=== PATIENT | female | born 1935 | race Caucasian/White ===

== ENCOUNTER 2024-08-08 22:33 | Inpatient (IN) | payer OTHER, SELFPAY ==
[2024-08-08 15:35] VITALS: BP 159/81
[2024-08-08 16:17] LABS: % Basophils 0.1 % (0-2); % Eosinophils 0.3 % (0-6); % Immature Granulocytes 0.4 % (0-0.5); % Lymphocytes 24.4 % (20.5-51.1); % Monocytes 9.2 % (1.7-9.3); % Neutrophils 65.6 % (42.2-75.2); Absolute Lymphocytes 1.7 10^3/uL (1.2-3.4); Absolute Monocytes 0.6 10^3/uL (0.1-0.6); Absolute Neutrophils 4.6 10^3/uL (1.4-6.5); Hematocrit 38.1 % (37.0-47.0); Hemoglobin 13.3 g/dL (12.0-16.0); Mean Corp Hgb Conc. 34.9 g/dL (33.0-37.0); Mean Corpuscular Hgb 29.5 pg (27.0-31.0); Mean Corpuscular Volume 84.5 fL (81.0-99.0); Mean Platelet Volume 10.3 fL (7.4-10.4); Nucleated Red Blood Cells % 0 %; Platelet Count 245 10^3/uL (130-400); Red Blood Cell Count 4.51 10^6/uL (4.20-5.40); Red Cell Dist. Width 12.6 % (11.5-14.5)
[2024-08-08 16:29] LABS: ALT (SGPT) 23 U/L (0-35); AST (SGOT) 30 U/L (14-36); Albumin 4.3 g/dl (3.5-5.0); Alkaline Phosphatase 79 U/L (38-126); Blood Urea Nitrogen 20 mg/dl (7-17); Calcium 9.2 mg/dl (8.4-10.2); Carbon Dioxide 30 mmol/L (22-30); Chloride 93 mmol/L (98-107); Glucose 112 mg/dl (70-99); Potassium 3.2 mmol/L (3.5-5.1); Sodium 134 mmol/L (135-145); Total Bilirubin 0.4 mg/dl (0.2-1.3); Total Protein 6.9 g/dl (6.3-8.2); eGFR > 60.00
[2024-08-08 17:58] VITALS: BP 157/74
[2024-08-08 18:00] VITALS: BP 160/88; BMI 25.1
--- NOTE | 2024-08-08 18:15 | ED.GENMED ---
History of Present Illness
<Gladis Lou LAMINATION INSPECTOR - Last Filed: 08/08/24 23:54>
General
Chief Complaint: Breathing Problem
Source: patient
Exam Limitations: none
Time Seen by Provider: 08/08/24 17:45
Nursing documentation reviewed up to this point in time: agreed with
History of Present Illness
History of Present Illness:
89 yo female from home for increasing SOB over rosa past 8 days. Diagnosed with flu 8 days ago. Had cough that has subsided. States today she couldn't catch her breath, BAH. Denies fever. Denies CP. States she has had some wheezing.
Hx HTN, HLD, Hypothyroid, depression/anxiety, CKD 3,
Echo 11/2022:EF 55-60%, mild mitral regurgitation, mild tricuspid regurgitation, otherwise unremarkable
Past History
<Gladis Lou, LAMINATION INSPECTOR - Last Filed: 08/08/24 23:54>
Past History
ED Past Medical History: HTN, Hypercholesterolemia, Hypothyroidism and Other (Lyme's disease, kidney stones)
ED Past Surgical History: Urological (chronic pain in vaginal area/groin)
Social History
Tobacco: Non-smoker
Alcohol: None
Drug: None
Personal:
Living: with family
Employment: Retired
Family History
Family History: Hypertension
Review of Systems
<Gladis Lou, LAMINATION INSPECTOR - Last Filed: 08/08/24 23:54>
Review of Systems
Allergies reviewed?: Yes
All Other Systems: ROS reviewed and negative except as documented in HPI and ROS
Constitutional: Reports fatigue; Denies fever
EENT: Denies sore throat
Respiratory: Reports trouble breathing; Denies cough
Cardiac: Denies chest pain or syncope
ABD/GI: Denies abdominal pain, nausea, vomiting or diarrhea
: Denies dysuria, frequency or difficulty voiding
Musculoskeletal: Reports no symptoms
Skin: Reports no symptoms
Neurological: Reports no symptoms
Phy Exam
<Gladis Lou, LAMINATION INSPECTOR - Last Filed: 08/08/24 23:54>
Physical Exam
Physical Exam:
GENERAL: No acute distress. A&Ox3.
CONSTITUTIONAL: Afebrile.
EYES: clear, conjunctivae normal
ENMT: moist mucus membranes, Pharynx nl
RESPIRATORY: Regular respirations, nonlabored, lungs clear.
CARDIOVASCULAR: Regular rate and rhythm, no murmurs, no rubs, mild crackles R lung base. Pulse ox 94% on 3L [place]
GI: Soft, nontender, normal BS
MUSCULOSKELETAL: Moves with ease. Well perfused. No edema
SKIN: Warm, dry, pink
PSYCH: Normal mood and affect. Well kept, interactive and appropriate
NEUROLOGIC: Awake, alert and oriented. No focal neurological deficits
Scores
<Gladis Lou, LAMINATION INSPECTOR - Last Filed: 08/08/24 23:54>
Heart Failure Risk
Heart Failure Risk Score: Not Applicable
Course
<Gladis Lou, LAMINATION INSPECTOR - Last Filed: 08/08/24 23:54>
Orders/Labs/Results
Orders:
Orders
08/08/24 Dinner
Regular
08/08/24 15:38
CR Chest - 2 Views Urgent
Comment:
Reason For Exam: SOB
08/08/24 15:50
CMP [Comprehensive Metabolic Panel] Urgent
Complete Blood Count/With Diff Urgent
08/08/24 18:30
Electrocardiogram (*1) Urgent
Reason for Study: Shortness of Breath
EKG- Treatment ONCE
08/08/24 18:31
CT Chest PE Study Urgent
Comment:
Reason For Exam: SOB, BAH, hypoxemia
08/08/24 21:15
CefTRIAXone [Rocephin] 1,000 mg IV NOW STA
08/08/24 21:16
Doxycycline [Vibramycin] 100 mg PO NOW STA
08/08/24 22:15
Admit/Transfer Patient As Directed
Co-Sign Provider:
Level of Care: Inpatient admission
Assign to:: Medical/Surgical
Physician / Group: hospitalist
Diagnosis: Pneumonia
Reason for Hospitalization: hypoxic respiratory distress
Expected length of stay greater than two midnights?: Yes
ELOS- Estimated Length of Stay in days: 2
I certify the patient meets the requirements for IP care: Yes
08/08/24 22:16
Code Status As Directed
Resuscitation Status: Full Code
PRN Pain Medication Management As Directed
May give lesser potent ordered pain med per pt: Yes
preference::
Protocol:: Medication orders for pain may be administered in a
manner that supports deferring to patient preference
when the pt is:
- Requesting an ordered lesser potent pain medication.
Least to most potent pain medications are defined
as: acetaminophen < NSAID < tramadol < opioids
(morphine, oxycodone, hydromorphone).
- Requesting a lesser dose of the same medication IF
ORDERED.
- Requesting a less intrusive route of administration
if both routes are prescribed by the provider (PO <
IV).
08/08/24 22:23
Potassium Chloride [KCl] 40 meq PO NOW STA
08/08/24 22:40
COVID-19 Antigen Stat
Source: Nasal Swab
08/08/24 23:00
Flush (0.9% Sodium Chloride) [Flush (Nss)] See Dose Instructions IV PER PROTOCOL
08/08/24 23:54
Legionella Urinary Antigen Routine
VITALY Source: Urine
Specimen Description:
Acetaminophen [Tylenol] 650 mg PO Q4HPRN PRN
Guaifenesin/Dextromethorphan [Robitussin Dm] 5 ml PO Q4HPRN PRN
Ipratropium/Albuterol Sulfate [Duoneb] 3 ml INH R Q4HPRN PRN
Ondansetron Injectable [Zofran] 4 mg IV Q6HPRN PRN
Tramadol HCl [Ultram] 50 mg PO Q6HPRN PRN
Activity As Directed
Activity Level: Out of Bed-Early Mobility
Intake/ Output As Directed
Frequency: Per unit guidelines
Vital Signs As Directed
Frequency: Per unit guidelines
Weight As Directed
Frequency: Once
Comment: on admission
O2 Therapy [RESP] Routine
Nasal Cannula Liter Flow: 6 LPM
Titrate/Wean O2 to maintain O2 sat greater than (%): 93
Special Instructions: Please apply Humidified MID-FLOW to 15 L as needed. Wean as tolerated
Pulse Ox/cont/shift [RESP] Routine
Quantity: 1
Special Instructions: notify provider if SPO2 < 91%
Rx Incentive Spirometry [RESP] Routine
Frequency: q1h while awake
Pt Eval And Treat Routine
Activity Level: With Assistance
DX Deep Vein Thrombosis Video Routine
08/09/24 06:00
Basic Metabolic Panel IN AM
Complete Blood Count/No Diff IN AM
Levothyroxine [Synthroid] 25 mcg PO DAILY @ 0600
08/09/24 08:00
Amlodipine [Norvasc] 5 mg PO DAILY
Doxycycline [Vibramycin] 100 mg PO BID
Escitalopram Oxalate [Lexapro] 10 mg PO DAILY
Lisinopril [Zestril] 20 mg PO DAILY
Pregabalin [Lyrica] 50 mg PO BID
08/09/24 18:00
Atorvastatin [Lipitor] 10 mg PO QPM
Enoxaparin Sodium [Lovenox] 40 mg SC QPM
08/09/24 22:00
CefTRIAXone [Rocephin] 1,000 mg IV Q24H
Abnormal Lab Results
08/08/24
15:50
Sodium 134 L mmol/L
(135-145)
Potassium 3.2 L mmol/L
(3.5-5.1)
Chloride 93 L mmol/L
(98-107)
BUN 20 H mg/dl
(7-17)
Glucose 112 H mg/dl
(70-99)
08/08/24 15:50
08/08/24 15:50
Vital Signs
Initial and Last Documented VS:
Initial Vital Signs
Temp Pulse Resp BP Pulse Ox
97.4 F 83 20 159/81 90
08/08/24 15:35 08/08/24 15:35 08/08/24 15:35 08/08/24 15:35 08/08/24 15:35
Last Documented Vital Signs
Temp Pulse Resp BP Pulse Ox
97.4 F 73 36 156/74 88
08/08/24 15:35 08/08/24 19:57 08/08/24 19:57 08/08/24 19:57 08/08/24 20:01
Iron Handler consulted with Physician
Iron Handler consulted with physician?: Yes
Name of Physician Consulted: Azeem
Scottylt;Osmel Gann, DO - Last Filed: 08/08/24 19:54>
Orders/Labs/Results
Orders:
Orders
08/08/24 Dinner
Regular
08/08/24 15:38
CR Chest - 2 Views Urgent
Comment:
Reason For Exam: SOB
08/08/24 15:50
CMP [Comprehensive Metabolic Panel] Urgent
Complete Blood Count/With Diff Urgent
08/08/24 18:30
Electrocardiogram (*1) Urgent
Reason for Study: Shortness of Breath
EKG- Treatment ONCE
08/08/24 18:31
CT Chest PE Study Urgent
Comment:
Reason For Exam: SOB, BAH, hypoxemia
08/08/24 21:15
CefTRIAXone [Rocephin] 1,000 mg IV NOW STA
08/08/24 21:16
Doxycycline [Vibramycin] 100 mg PO NOW STA
08/08/24 22:15
Admit/Transfer Patient As Directed
Co-Sign Provider:
Level of Care: Inpatient admission
Assign to:: Medical/Surgical
Physician / Group: hospitalist
Diagnosis: Pneumonia
Reason for Hospitalization: hypoxic respiratory distress
Expected length of stay greater than two midnights?: Yes
ELOS- Estimated Length of Stay in days: 2
I certify the patient meets the requirements for IP care: Yes
08/08/24 22:16
Code Status As Directed
Resuscitation Status: Full Code
PRN Pain Medication Management As Directed
May give lesser potent ordered pain med per pt: Yes
preference::
Protocol:: Medication orders for pain may be administered in a
manner that supports deferring to patient preference
when the pt is:
- Requesting an ordered lesser potent pain medication.
Least to most potent pain medications are defined
as: acetaminophen < NSAID < tramadol < opioids
(morphine, oxycodone, hydromorphone).
- Requesting a lesser dose of the same medication IF
ORDERED.
- Requesting a less intrusive route of administration
if both routes are prescribed by the provider (PO <
IV).
08/08/24 22:23
Potassium Chloride [KCl] 40 meq PO NOW STA
08/08/24 22:40
COVID-19 Antigen Stat
Source: Nasal Swab
08/08/24 23:00
Flush (0.9% Sodium Chloride) [Flush (Nss)] See Dose Instructions IV PER PROTOCOL
08/08/24 23:54
Legionella Urinary Antigen Routine
VITALY Source: Urine
Specimen Description:
Acetaminophen [Tylenol] 650 mg PO Q4HPRN PRN
Guaifenesin/Dextromethorphan [Robitussin Dm] 5 ml PO Q4HPRN PRN
Ipratropium/Albuterol Sulfate [Duoneb] 3 ml INH R Q4HPRN PRN
Ondansetron Injectable [Zofran] 4 mg IV Q6HPRN PRN
Tramadol HCl [Ultram] 50 mg PO Q6HPRN PRN
Activity As Directed
Activity Level: Out of Bed-Early Mobility
Intake/ Output As Directed
Frequency: Per unit guidelines
Vital Signs As Directed
Frequency: Per unit guidelines
Weight As Directed
Frequency: Once
Comment: on admission
O2 Therapy [RESP] Routine
Nasal Cannula Liter Flow: 6 LPM
Titrate/Wean O2 to maintain O2 sat greater than (%): 93
Special Instructions: Please apply Humidified MID-FLOW to 15 L as needed. Wean as tolerated
Pulse Ox/cont/shift [RESP] Routine
Quantity: 1
Special Instructions: notify provider if SPO2 < 91%
Rx Incentive Spirometry [RESP] Routine
Frequency: q1h while awake
Pt Eval And Treat Routine
Activity Level: With Assistance
DX Deep Vein Thrombosis Video Routine
08/09/24 06:00
Basic Metabolic Panel IN AM
Complete Blood Count/No Diff IN AM
Levothyroxine [Synthroid] 25 mcg PO DAILY @ 0600
08/09/24 08:00
Amlodipine [Norvasc] 5 mg PO DAILY
Doxycycline [Vibramycin] 100 mg PO BID
Escitalopram Oxalate [Lexapro] 10 mg PO DAILY
Lisinopril [Zestril] 20 mg PO DAILY
Pregabalin [Lyrica] 50 mg PO BID
08/09/24 18:00
Atorvastatin [Lipitor] 10 mg PO QPM
Enoxaparin Sodium [Lovenox] 40 mg SC QPM
08/09/24 22:00
CefTRIAXone [Rocephin] 1,000 mg IV Q24H
Abnormal Lab Results
08/08/24
15:50
Sodium 134 L mmol/L
(135-145)
Potassium 3.2 L mmol/L
(3.5-5.1)
Chloride 93 L mmol/L
(98-107)
BUN 20 H mg/dl
(7-17)
Glucose 112 H mg/dl
(70-99)
08/08/24 15:50
08/08/24 15:50
Vital Signs
Initial and Last Documented VS:
Initial Vital Signs
Temp Pulse Resp BP Pulse Ox
97.4 F 83 20 159/81 90
08/08/24 15:35 08/08/24 15:35 08/08/24 15:35 08/08/24 15:35 08/08/24 15:35
Last Documented Vital Signs
Temp Pulse Resp BP Pulse Ox
97.4 F 73 36 156/74 88
08/08/24 15:35 08/08/24 19:57 08/08/24 19:57 08/08/24 19:57 08/08/24 20:01
<Gladis Lou, LAMINATION INSPECTOR - Last Filed: 08/08/24 23:54>
MDM/Problems Addressed
Differential Diagnosis Includes:
Covid, PNA, PE
MDM/Problems Addressed:
89 yo female from home for increasing SOB over rosa past 8 days. Diagnosed with flu 8 days ago, neg Covid at that time. Had cough that has subsided. States today she couldn't catch her breath, BAH. Denies fever. Denies CP. States she has had some
wheezing.
Pulse ox 94% on 3L NC.
EKG NSR
CBC, CMP with no clinically significant abnormality
CXR NAD
Hx HTN, HLD, Hypothyroid, depression/anxiety, CKD 3,
Echo 11/2022:EF 55-60%, mild mitral regurgitation, mild tricuspid regurgitation, otherwise unremarkable
No history of cardiac/CHF, no sign of fluid overload, chest x-ray NAD, no indication for a BNP
Plan: Take patient off oxygen and see if she desaturates, if she remains stable we will do a road test, if she desaturates we will move on to a chest CT.
6:30 p.m.
Off O2 pt pulse ox dropped to 88% within minutes, Placed back on 3L O2 NC. Will check Chest CT/Pe study.
7:50 p.m.
RN reports pt O2 Sat dropped to 80's O2 increased to 6 L NC w O2 sat now 92%
Pt in no distress, calm, not tachycardic, no labored breathing, lungs remain clear with fine RLL crackles.
Pt awaiting PE study.
Dr. Gann in to evaluate
8:45 p.m.
PE study: Bilateral lower lobe PNA
Hospitalist notified of admissio
Pt remains stable.
<Gladis Lou LAMINATION INSPECTOR - Last Filed: 08/08/24 23:54>
*Critical Care Note
Total Time (30-74mins, 75-104mins- exclusive of procedures): Not Applicable
ED Attending Note
<Gladis Lou LAMINATION INSPECTOR - Last Filed: 08/08/24 23:54>
-
Portions of this chart may have been created with voice recognition software.� Occasional wrong word or��sound alike� substitutions may have occurred due to the inherent limitations of voice recognition software.
<Osmel Gann DO - Last Filed: 08/08/24 19:54>
ED Attending Note
Patient seen and examined by attending physician: Yes
I performed the substantive portion of visit, reviewed & personally made and approve the management plan that is documented in note by myself or SYL.: Yes
ED Attending Note:
I agree with Lisa's note.
Patient presents because she is feel short of breath. Patient was tested for flu last week was positive. No known fever. She does not use any inhalers or nebulizers. She has some discomfort with a deep breath but 'not bad'.
Patient noted to be hypoxic on room air with a sat down to the mid 80s. Otherwise her vital signs are acceptable
General: Awake, Alert, Oriented X3. Patient does not appear to be in significant respiratory distress
Vitals: Hypoxic
Head: Atraumatic
Eyes: Pupils equal, EOMI
Throat: Airway intact, no exudates
Neck: Trachea midline
Lungs: Decreased breath sounds, no wheezing noted
Heart: Regular rate, no murmurs
Abd: Soft, Nontender, No pulsatile mass
Skin: Warm, dry, no rash
Extremities: pulses equal b/l, no edema
On review of the patient's chest x-ray I do not see an obvious infiltrate, heart failure or other reason for her to be hypoxic. Her CBC is essentially normal. Chemistry show mild hypokalemia. Given her level of hypoxia without an apparent cause
we will obtain a CT of the chest with IV contrast to exclude PE or other pulmonary process
Discharge Plan
Departure
Patient Disposition: Admit
Date of Disposition: 08/08/24
Time of Disposition: 21:08
Admit to: Med/Surg
Presentation/result/management discussed w/ accepting MD/DO: Hospitalist
Condition: Fair
Covid-19: Negative COVID-19
Discharge Problem:
Bilateral pneumonia
Interventions
Interventions:
*Risk Screen - Suicide Last Done: 08/08/24 15:35
*General Assessment Last Done: 08/08/24 15:35
*Neglect/Abuse Screening Last Done: 08/08/24 18:00
ED- Fall Risk Assessment Last Done: 08/08/24 20:01
*ED COVID-19 Vaccine History Last Done: 08/08/24 15:35
ED- Cardiac Assessment Last Done: 08/08/24 20:01
ED- Pulmonary Assessment Last Done: 08/08/24 20:01
[2024-08-08 19:57] VITALS: BP 156/74
[2024-08-08] MEDS: ROCEPHIN 1000 MG IV (22:02)
[2024-08-08] MEDS: VIBRAMYCIN 100 MG PO (22:02)
--- NOTE | 2024-08-08 22:08 | HPS.HSE ---
Family Physician
-
Family Physician: Chris Malagon
Chief Complaint
-
Worsening shortness of breath
History of Present Illness
This is a 89-year-old female was past medical history significant for hypertension, irritable bowel syndrome, depression, hypothyroid presenting to the emergency department for increasing shortness of breath.
Patient reports that she was diagnosed with influenza via her nasal swab at a community [facility] facility 8 days ago. At the time she was having fevers and productive cough and some mild shortness of breath. She reported that the fevers have
subsided. She also reports that her productive cough is subsided. However in the last few days she is getting worse and worse with her shortness of breath. She now has significant dyspnea on exertion with any activity. She reports very mild
inspirational chest discomfort. She denies feeling dizzy or lightheaded. She denies having any chest pain otherwise. Patient denies any lower extremity swelling, palpitations, orthopnea or PND. She has no smoking history, denies any history of
interstitial lung disease, denies any history of asthma.
On arrival in the emergency department she was hypoxic requiring supplemental oxygen. I found her satting around 89% on 5 L nasal cannula. She was tachypneic rate of 36. Blood pressure was 156/74 with a pulse of 73. Chest x-ray initially was
unremarkable. A CT chest with IV contrast is pending official read. By my read she has bilateral lower lobe opacities. CBC was unremarkable. Chemistries notable for a potassium of 3.2 but is otherwise unremarkable.
Medical History
Past Medical History
Past Medical History: Reports HTN, Hypothyroidism and Other (Irritable bowel syndrome)
Additional Past Medical History:
Colonic polyps
Past Surgical History: Reports None
Social History
Tobacco: Non-smoker (Never smoked)
Alcohol: None
Drug: None
Personal:
Living: With Family
Employment: Retired
Family History
Family History: Not pertinent
Allergies / Home Medications
Allergies reflects when Allergies were last updated in [facility].
Home Medications with original date entered in [facility]
Allergy/Medication List:
Allergies
Allergy/AdvReac Type Severity Reaction Status Date / Time
ciprofloxacin [From Cipro] Allergy Unknown Verified 08/08/24 15:37
Home Medications
lisinopril 20 mg-hydrochlorothiazide 12.5 mg tablet 2 ea PO Daily 12/01/15
tramadol 50 mg tablet 1 tab PO DAILY 12/01/15
atorvastatin 10 mg tablet 10 mg PO DAILY 04/13/17
gabapentin 100 mg capsule 100 mg PO BID #30 caps 04/04/22
prednisone 20 mg tablet 40 mg (2 x 20 mg) PO DAILY #10 tabs 04/04/22
lorazepam 0.5 mg tablet (Ativan) 0.5 mg PO DAILY PRN anxiety #10 tabs 11/18/22
Review of Systems
-
History Source: Patient
Constitutional: Reports No Symptoms
EENT: Reports No Symptoms
Respiratory: Reports Cough and Trouble Breathing
Cardiac: Reports No Symptoms
Abdomen/GI: Reports No Symptoms
: Reports No Symptoms
Musculoskeletal: Reports No Symptoms
Skin: Reports No Symptoms
Neurological: Reports No Symptoms
Endocrine: Reports No Symptoms
Hematologic/Lymphatic: Reports No Symptoms
Psych: Reports No Symptoms
Physical Exam
Vital Signs
Vital Signs
Temp Pulse Resp BP Pulse Ox
97.4 F 73 36 156/74 88
08/08/24 15:35 08/08/24 19:57 08/08/24 19:57 08/08/24 19:57 08/08/24 20:01
Physical Exam
General: Well Developed, Well Nourished and Comfortable
HEENT: NormoCephalic, Anicteric and Moist mucous membranes
Respiratory: Crackles
Cardiac: S1/S2 and Regular Rhythm
Breast: Deferred by me
GI: Soft, Non Tender and Non Distended
Rectal: Deferred by Provider
Genito-urinary: Deferred by me
Musculoskeletal: No Clubbing, No Cyanosis and No Edema
Skin: Warm
Neuro: AO x 3 and Nonfocal/grossly intact
Hematologic/Lymphatic: No Lymphadenopathy
Psych: Calm
Laboratory Results
-
08/08/24 15:50
08/08/24 15:50
Laboratory Results
Total Bilirubin 0.4 mg/dl (0.2-1.3) 08/08/24 15:50
AST 30 U/L (14-36) 08/08/24 15:50
ALT 23 U/L (0-35) 08/08/24 15:50
Alkaline Phosphatase 79 U/L (38-126) 08/08/24 15:50
Data Reviewed
-
Diagnostic Radiology: Image Personally Visualized and interpreted and Report Reviewed by me
CT Scan: Image Personally Visualized and interpreted and Report Reviewed by me
Lab Data: Labs Reviewed by me
Old Records: Reviewed
Impression/Plan
-
IMPRESSION:
89-year-old diagnosed with influenza in the setting of fevers cough and shortness of breath 8 days ago. She had improvement in her fever and cough but remains short of breath. She is quite hypoxic requiring 5 L to maintain a sat of 90%. No prior
history of pulmonary disease. I am currently awaiting the results of a CT PE study to rule out a PE. On the imaging so far she has multifocal opacities in the bilateral lower lobes. There is suspicion for superimposed pneumonia status post viral
infection.
PLAN:
1. Pneumonia -postviral pneumonia. No risk factors for resistant organisms. Severe hypoxia with elevated wob
- admit to med surg
- place on mid-flow oxygen
- check covid 19
- start ceftriaxone/doxycycline
- respiratory treatments with neb prn
- minimal cough and no wheezing, no evidence of asthmatic bronchitis
- supportive care
- pt evaluation
2. HTN
- continue lisinopril
- hold hctz
3. Hypokalemia - K 3.2 on hctz
- hold hctz
- check mag,
- k supplementation
DVT PPX - lovenox sq
Code status - full code
[2024-08-08] MEDS: ULTRAM 50 MG PO (22:44)
[2024-08-08] MEDS: KCL 40 MEQ PO (22:45)
[2024-08-08 23:03] LABS: COVID-19 Antigen Negative (Negative)
[2024-08-08 23:30] VITALS: BP 131/86
[2024-08-09 00:42] VITALS: BMI 22.8
[2024-08-09] MEDS: TYLENOL 650 MG PO ×2 (01:01→12:01)
[2024-08-09] MEDS: SYNTHROID 25 MCG PO (05:44)
--- NOTE | 2024-08-09 07:03 | W.PN.HOSP.TC ---
Today's Communication/Plan
-
cont abx
check sputum culture
Incentive Spirometer
VEST therapy
wean O2 supplementation as tolerated
Duoneb R QID and prn
Assessment / Plan
Assessment / Plan
Physical Exam
General: no acute distress, appears comfortable at this time
HEENT: NormoCephalic, Anicteric and Moist mucous membranes
Respiratory: Rhonchi
Cardiac: S1/S2 and Regular Rhythm
GI: Soft, Non Tender and Non Distended
Musculoskeletal: No Clubbing, No Cyanosis and No Edema
Skin: Warm
Neuro: AO x 3
Psych: Calm
89F diagnosed with influenza 8 days ago. She had improvement in her fever and cough but remained short of breath. Developed acute hypoxia requiring 5 L to maintain a sat of 90%. No prior history of pulmonary disease. Suspected superimposed
pneumonia status post viral infection.
PLAN:
CXR appreciated no acute abn's
CT chest appreciated
bronchitis/mild mucous plugging/likely atelectasis/possible pna
# Pneumonia -postviral pneumonia.
#Acute Hypoxic Respiratory Failure
#Severe hypoxia with elevated wob
- mid-flow oxygen wean O2 as tolerated
- covid 19 negative
- started on ceftriaxone/doxycycline, cont
- Duoneb R QID and prn
- check sputum culture
- VEST therapy
-Incentive spirometer
- PT eval appreciated SNF rehab
# HTN
- continue lisinopril
- hold hctz, Amlodipine added
-monitor and titrate antihypertensive regimen as necessary.
# Hypokalemia
monitor and replete as necessary
DVT PPX - lovenox sq
Code status - full code
Discussed with patient and patient's daughter Gladis
I spent a total of 50 minutes with the patient or on the floor. More than 50% of this time involved counseling and coordination of care.
Anticipated Discharge: 24 - 48 hours
Subjective/Interval History
-
Date of Service: August 09, 2024
Seen and examined at bedside in no acute distress sitting up comfortably chair. On nasal cannula supplementation, Reports some improvement in symptoms, though not resolved. Productive cough.
Objective Data
-
Labs:
Laboratory Results
08/09/24
06:00
WBC Pending
Hgb Pending
Hct Pending
Plt Count Pending
Sodium Pending
Potassium Pending
Chloride Pending
Carbon Dioxide Pending
BUN Pending
Creatinine Pending
Glucose Pending
Calcium Pending
Vital Signs:
Vital Signs
Temp Pulse Resp BP Pulse Ox
97.6 F 99 20 131/86 94
08/08/24 23:30 08/08/24 23:30 08/08/24 23:30 08/08/24 23:30 08/09/24 01:19
I&O
08/08/24 08/09/24 08/10/24
06:59 06:59 06:59
Intake Total 480 / 480
Balance 480 / 480
[2024-08-09] MEDS: ULTRAM 50 MG PO ×2 (07:42→17:05)
[2024-08-09] MEDS: NORVASC 5 MG PO (07:43)
[2024-08-09] MEDS: ZESTRIL 20 MG PO (07:43)
[2024-08-09] MEDS: LEXAPRO 10 MG PO (07:43)
[2024-08-09] MEDS: VIBRAMYCIN 100 MG PO ×2 (07:43→19:56)
[2024-08-09] MEDS: ROBITUSSIN DM 5 ML PO ×2 (07:49→12:01)
[2024-08-09 07:50] VITALS: BP 153/78
[2024-08-09] MEDS: LYRICA 50 MG PO ×2 (08:12→19:56)
[2024-08-09 08:19] LABS: Hematocrit 38.4 % (37.0-47.0); Hemoglobin 13.2 g/dL (12.0-16.0); Mean Corp Hgb Conc. 34.4 g/dL (33.0-37.0); Mean Corpuscular Hgb 28.9 pg (27.0-31.0); Mean Corpuscular Volume 84.2 fL (81.0-99.0); Mean Platelet Volume 10.4 fL (7.4-10.4); Platelet Count 266 10^3/uL (130-400); Red Blood Cell Count 4.56 10^6/uL (4.20-5.40); Red Cell Dist. Width 12.9 % (11.5-14.5); White Blood Cell Count 14.7 10^3/uL (4.8-10.8)
[2024-08-09 08:46] LABS: Blood Urea Nitrogen 17 mg/dl (7-17); Calcium 9.2 mg/dl (8.4-10.2); Carbon Dioxide 31 mmol/L (22-30); Chloride 94 mmol/L (98-107); Estimated Creatinine Clearance 37 ml/min; Glucose 137 mg/dl (70-99); Potassium 3.6 mmol/L (3.5-5.1); Sodium 135 mmol/L (135-145); eGFR > 60.00
[2024-08-09 10:34] VITALS: BP 131/59
--- NOTE | 2024-08-09 13:01 | CM ---
Patient seen bedside, initial assessment completed. Patient resides at [facility] with her spouse who has Dementia, first floor set up, no device used. Patient reports VN in the past, unsure with who, denies SNF history. Patient PCP
[facility], [facility], not [facility]. Patient currently on O2, does not wear home O2. CM discussed PT recommendations of SNF, patient declining SNF, reports she ambulates without device typically and does not need to go to rehab. CM will
continue to follow for all discharge planning needs.
Plan; return to [facility] with possible VN, declining SNF, watch for O2 needs.
[2024-08-09 15:40] VITALS: BP 154/71
[2024-08-09] MEDS: LOVENOX 40 MG SC (17:00)
[2024-08-09] MEDS: LIPITOR 10 MG PO (17:01)
[2024-08-09] MEDS: DUONEB 3 ML INH (20:03)
[2024-08-09] MEDS: STERILE WATER FOR INJECTION 10 ML IV (21:24)
[2024-08-09] MEDS: ROCEPHIN 1000 MG IV (21:24)
[2024-08-09 23:13] VITALS: BP 131/69
[2024-08-10] MEDS: SYNTHROID 25 MCG PO (05:11)
--- NOTE | 2024-08-10 06:22 | W.PN.HOSP.TC ---
Today's Communication/Plan
-
cont abx
Follow sputum culture
Incentive Spirometer
VEST therapy
wean O2 supplementation as tolerated
Duoneb R QID and prn
Assessment / Plan
Assessment / Plan
Physical Exam
General: no acute distress, appears comfortable at this time
HEENT: NormoCephalic, Anicteric and Moist mucous membranes
Respiratory: Rhonchi though appears improved from prior
Cardiac: S1/S2 and Regular Rhythm
GI: Soft, Non Tender and Non Distended
Musculoskeletal: No Clubbing, No Cyanosis and No Edema
Skin: Warm
Neuro: AO x 3
Psych: Calm
89F diagnosed with influenza 8 days ago. She had improvement in her fever and cough but remained short of breath. Developed acute hypoxia requiring 5 L to maintain a sat of 90%. No prior history of pulmonary disease. Suspected superimposed
pneumonia status post viral infection.
PLAN:
CXR appreciated no acute abn's
CT chest appreciated
bronchitis/mild mucous plugging/likely atelectasis/possible pna
# Pneumonia -postviral pneumonia.
#Acute Hypoxic Respiratory Failure
#Severe hypoxia with elevated wob
- mid-flow oxygen wean O2 as tolerated
- covid 19 negative
- started on ceftriaxone/doxycycline, cont
- Duoneb R QID and prn
- check sputum culture
- VEST therapy
-Incentive spirometer
- PT eval appreciated SNF rehab
# HTN
- continue lisinopril
- hold hctz, Amlodipine added
-monitor and titrate antihypertensive regimen as necessary.
# Hypokalemia
monitor and replete as necessary
#Constipation
Miralax Senna Colace hold if diarrhea
DVT PPX - lovenox sq
Code status - full code
Discussed with patient and patient's daughter Gladis
I spent a total of 50 minutes with the patient or on the floor. More than 50% of this time involved counseling and coordination of care.
Anticipated Discharge: 24 - 48 hours
Subjective/Interval History
-
Date of Service: August 10, 2024
Seen and examined at bedside in no acute distress resting comfortably in bed. Weaning down on oxygen supplementation albeit slowly. Patient reports overall feeling well/symptoms improved but no resolved. Patient also reports constipation, no
bowel movement since admission.
Objective Data
-
Labs:
Laboratory Results
08/10/24
06:00
WBC Pending
Hgb Pending
Hct Pending
Plt Count Pending
Sodium Pending
Potassium Pending
Chloride Pending
Carbon Dioxide Pending
BUN Pending
Creatinine Pending
Glucose Pending
Calcium Pending
Vital Signs:
Vital Signs
Temp Pulse Resp BP Pulse Ox
97.8 F 69 16 131/69 96
08/09/24 23:13 08/09/24 23:13 08/09/24 23:13 08/09/24 23:13 08/09/24 23:13
I&O
08/08/24 08/09/24 08/10/24
06:59 06:59 06:59
Intake Total 480 / 480 480 / 480
Balance 480 / 480 480 / 480
[2024-08-10 07:27] LABS: Hematocrit 34.1 % (37.0-47.0); Hemoglobin 11.6 g/dL (12.0-16.0); Mean Corpuscular Hgb 29.1 pg (27.0-31.0); Mean Corpuscular Volume 85.5 fL (81.0-99.0); Mean Platelet Volume 10.5 fL (7.4-10.4); Platelet Count 266 10^3/uL (130-400); Red Blood Cell Count 3.99 10^6/uL (4.20-5.40); Red Cell Dist. Width 13.1 % (11.5-14.5); White Blood Cell Count 9.6 10^3/uL (4.8-10.8)
[2024-08-10 07:34] VITALS: BP 127/71
[2024-08-10 07:53] LABS: Blood Urea Nitrogen 25 mg/dl (7-17); Calcium 8.8 mg/dl (8.4-10.2); Carbon Dioxide 33 mmol/L (22-30); Chloride 92 mmol/L (98-107); Estimated Creatinine Clearance 30 ml/min; Glucose 98 mg/dl (70-99); Magnesium 1.7 mg/dl (1.6-2.3); Phosphorus 3.3 mg/dl (2.5-4.5); Potassium 3.9 mmol/L (3.5-5.1); Sodium 133 mmol/L (135-145); eGFR 48.03
[2024-08-10] MEDS: DUONEB 3 ML INH ×3 (07:59→15:49)
[2024-08-10] MEDS: LEXAPRO 10 MG PO (08:24)
[2024-08-10] MEDS: NORVASC 5 MG PO (08:24)
[2024-08-10] MEDS: VIBRAMYCIN 100 MG PO ×2 (08:24→19:29)
[2024-08-10] MEDS: LYRICA 50 MG PO ×2 (08:24→19:29)
[2024-08-10] MEDS: ZESTRIL 20 MG PO (08:24)
[2024-08-10] MEDS: ULTRAM 50 MG PO ×2 (08:58→15:25)
[2024-08-10] MEDS: ROBITUSSIN DM 5 ML PO ×2 (09:32→19:36)
[2024-08-10] MEDS: SENOKOT-S 1 TABLET PO ×2 (10:20→19:28)
[2024-08-10 15:18] VITALS: BP 115/48
--- NOTE | 2024-08-10 15:20 | CM ---
Chart reviewed and physical therapy are recommending skilled placement, patient had been refusing skilled will review with patient, possible skilled placement.
Plan; To follow up for skilled placement.
[2024-08-10 15:22] VITALS: BP 119/55
[2024-08-10] MEDS: LOVENOX 40 MG SC (17:03)
[2024-08-10] MEDS: LIPITOR 10 MG PO (17:03)
[2024-08-10] MEDS: DUONEB INH (20:13)
[2024-08-10] MEDS: ROCEPHIN 1000 MG IV (21:54)
[2024-08-10] MEDS: STERILE WATER FOR INJECTION 10 ML IV (21:54)
[2024-08-10 23:34] VITALS: BP 123/69
[2024-08-11] MEDS: SYNTHROID 25 MCG PO (06:04)
[2024-08-11] MEDS: ULTRAM 50 MG PO ×2 (06:09→20:00)
[2024-08-11] MEDS: NORVASC 5 MG PO (07:16)
[2024-08-11] MEDS: ZESTRIL 20 MG PO (07:16)
[2024-08-11] MEDS: VIBRAMYCIN 100 MG PO ×2 (07:17→20:01)
[2024-08-11] MEDS: LEXAPRO 10 MG PO (07:17)
[2024-08-11] MEDS: LYRICA 50 MG PO ×2 (07:17→20:00)
[2024-08-11] MEDS: SENOKOT-S 1 TABLET PO ×2 (07:17→20:01)
[2024-08-11] MEDS: MIRALAX 17 GRAMS PO (07:18)
--- NOTE | 2024-08-11 07:26 | W.PN.HOSP.TC ---
Today's Communication/Plan
-
cont abx
Incentive Spirometer Acapella
wean O2 supplementation as tolerated
Duoneb R QID and prn
Discharge planning SNF rehab
Assessment / Plan
Assessment / Plan
Physical Exam
General: no acute distress, appears comfortable at this time
HEENT: NormoCephalic, Anicteric and Moist mucous membranes
Respiratory: Clear to auscultation b/l
Cardiac: S1/S2 and Regular Rhythm
GI: Soft, Non Tender and Non Distended
Musculoskeletal: No Clubbing, No Cyanosis and No Edema
Skin: Warm
Neuro: AO x 3
Psych: Calm
89F diagnosed with influenza 8 days ago. She had improvement in her fever and cough but remained short of breath. Developed acute hypoxia requiring 5 L to maintain a sat of 90%. No prior history of pulmonary disease. Suspected superimposed
pneumonia status post viral infection.
PLAN:
CXR appreciated no acute abn's
CT chest appreciated
bronchitis/mild mucous plugging/likely atelectasis/possible pna
# Pneumonia -postviral pneumonia.
#Acute Hypoxic Respiratory Failure
#Severe hypoxia with elevated wob
- mid-flow oxygen wean O2 as tolerated, weaned down to 2L
- covid 19 negative
- started on ceftriaxone/doxycycline, cont
- Duoneb R QID and prn
- sputum culture prelim appreciated usual respiratory nadeem
- VEST therapy completed, patient not tolerating, acapella ordered instead, cont
-Incentive spirometer
- PT eval appreciated SNF rehab
# HTN
- continue lisinopril
- hold hctz, Amlodipine added
-monitor and titrate antihypertensive regimen as necessary.
# Hypokalemia
monitor and replete as necessary
#Constipation
Miralax Senna Colace hold if diarrhea
DVT PPX - lovenox sq
Code status - full code
Discussed with patient and patient's daughter Gladis
I spent a total of 45 minutes with the patient or on the floor. More than 50% of this time involved counseling and coordination of care.
Anticipated Discharge: 24 - 48 hours
Subjective/Interval History
-
Date of Service: August 11, 2024
No acute distress. Sitting up comfortably in chair. Reports significant improvement in overall symptoms. Oxygen requirement improved, down to 2L.
Objective Data
-
Labs:
Laboratory Results
08/11/24
07:07
WBC Pending
Hgb Pending
Hct Pending
Plt Count Pending
Sodium Pending
Potassium Pending
Chloride Pending
Carbon Dioxide Pending
BUN Pending
Creatinine Pending
Glucose Pending
Calcium Pending
Vital Signs:
Vital Signs
Temp Pulse Resp BP Pulse Ox
97.6 F 71 18 123/69 96
08/10/24 23:34 08/10/24 23:34 08/10/24 23:34 08/10/24 23:34 08/10/24 23:34
I&O
08/10/24 08/11/24 08/12/24
06:59 06:59 06:59
Intake Total 960 / 960 1680 / 1680
Output Total 300 / 300
Balance 660 / 660 1680 / 1680
[2024-08-11] MEDS: DUONEB 3 ML INH ×4 (07:48→19:32)
[2024-08-11 07:57] VITALS: BP 122/59
[2024-08-11 08:53] LABS: Hematocrit 35.1 % (37.0-47.0); Hemoglobin 11.6 g/dL (12.0-16.0); Mean Corpuscular Hgb 28.8 pg (27.0-31.0); Mean Corpuscular Volume 87.1 fL (81.0-99.0); Mean Platelet Volume 10.3 fL (7.4-10.4); Platelet Count 296 10^3/uL (130-400); Red Blood Cell Count 4.03 10^6/uL (4.20-5.40); Red Cell Dist. Width 13.1 % (11.5-14.5); White Blood Cell Count 8.8 10^3/uL (4.8-10.8)
[2024-08-11 09:24] LABS: Blood Urea Nitrogen 25 mg/dl (7-17); Calcium 8.9 mg/dl (8.4-10.2); Carbon Dioxide 33 mmol/L (22-30); Chloride 96 mmol/L (98-107); Estimated Creatinine Clearance 33 ml/min; Glucose 88 mg/dl (70-99); Magnesium 1.7 mg/dl (1.6-2.3); Phosphorus 3.8 mg/dl (2.5-4.5); Potassium 4.3 mmol/L (3.5-5.1); Sodium 136 mmol/L (135-145); eGFR 53.85
[2024-08-11 11:10] VITALS: PULSE 78; O2SAT 94
[2024-08-11 14:09] VITALS: O2SAT 98
--- NOTE | 2024-08-11 15:29 | CM ---
Chart reviewed and caser met with patient today, patient is extremely tired, caser reached out to patient's daughter, Gladis to confirm discharge plan and patient to go to [facility] skilled facility for rehab when stable.
Plan; Skilled placement at [facility] admissions Sudha [phone], . Referral faxed to admissions. Patient will need auth for skilled placement.
[2024-08-11 15:41] VITALS: BP 127/62
[2024-08-11 17:15] VITALS: O2SAT 90; O2SAT 96
[2024-08-11] MEDS: LIPITOR 10 MG PO (17:28)
[2024-08-11] MEDS: LOVENOX SC (17:28)
[2024-08-11] MEDS: ROCEPHIN 1000 MG IV (21:52)
[2024-08-11] MEDS: STERILE WATER FOR INJECTION 10 ML IV (21:52)
[2024-08-11 23:32] VITALS: BP 112/67
--- NOTE | 2024-08-12 02:10 | DOWNTIME ---
There was a [employer] Client [employer] Quality Technician Downtime on 08/12/2024 from 0100 to 08/12/2023 at 0205 . Downtime documentation of patient's care, including medication administrations, has been reconciled in the electronic record per guidelines. Refer to the
patient's paper chart under the miscellaneous tab to see printed paper medication records and downtime forms.
[2024-08-12] MEDS: SYNTHROID 25 MCG PO (06:04)
--- NOTE | 2024-08-12 07:06 | W.PN.HOSP.TC ---
Today's Communication/Plan
-
discharge
Assessment / Plan
Assessment / Plan
Physical Exam
General: no acute distress, appears comfortable at this time
HEENT: NormoCephalic, Anicteric and Moist mucous membranes
Respiratory: Clear to auscultation b/l
Cardiac: S1/S2 and Regular Rhythm
GI: Soft, Non Tender and Non Distended
Musculoskeletal: No Clubbing, No Cyanosis and No Edema
Skin: Warm
Neuro: AO x 3
Psych: Calm
89F diagnosed with influenza 8 days ago. She had improvement in her fever and cough but remained short of breath. Developed acute hypoxia requiring 5 L to maintain a sat of 90%. No prior history of pulmonary disease. Suspected superimposed
pneumonia status post viral infection.
PLAN:
CXR appreciated no acute abn's
CT chest appreciated
bronchitis/mild mucous plugging/likely atelectasis/possible pna
# Pneumonia -postviral pneumonia.
#Acute Hypoxic Respiratory Failure
#Severe hypoxia with elevated wob
- weaned off oxygen supplementation
- covid 19 negative
- completed ceftriaxone doxycycline abx treatment
- Duoneb R QID and prn
- sputum culture appreciated usual respiratory nadeem
- VEST therapy completed, patient not tolerating, acapella ordered instead, cont
-Incentive spirometer
- PT eval appreciated SNF rehab
# HTN
- continue lisinopril
- hold hctz, Amlodipine added
-monitor and titrate antihypertensive regimen as necessary.
# Hypokalemia
monitor and replete as necessary
resolved
#Constipation
Miralax Senna Colace hold if diarrhea
DVT PPX - lovenox sq
Code status - full code
Medically stable for discharge SNF rehab with outpatient follow up recommendations.
Discussed with patient and patient's daughter Gladis
Total Time Preparing Discharge ___40____ minutes including examination of the patient, summary of the hospital stay, instructions for continuing care to all relevant caregivers; and preparation of discharge records, prescriptions, and referral
forms if necessary.
Anticipated Discharge: Today
Subjective/Interval History
-
Date of Service: August 12, 2024
No acute distress sitting up comfortably in chair reports feeling well weaned off oxygen supplementation stable respiratory status on room air. Looking forward to discharge SNF rehab today.
Objective Data
-
Labs:
Laboratory Results
08/12/24
06:00
WBC Pending
Hgb Pending
Hct Pending
Plt Count Pending
Sodium Pending
Potassium Pending
Chloride Pending
Carbon Dioxide Pending
BUN Pending
Creatinine Pending
Glucose Pending
Calcium Pending
Vital Signs:
Vital Signs
Temp Pulse Resp BP Pulse Ox
97.7 F 97 16 112/67 95
08/11/24 23:32 08/11/24 23:32 08/11/24 23:32 08/11/24 23:32 08/11/24 23:32
I&O
08/11/24 08/12/24 08/13/24
06:59 06:59 06:59
Intake Total 1680 / 1680 1680 / 1680
Balance 1680 / 1680 1680 / 1680
[2024-08-12 07:09] VITALS: BP 136/73
[2024-08-12] MEDS: LEXAPRO 10 MG PO (07:23)
[2024-08-12] MEDS: NORVASC 5 MG PO (07:23)
[2024-08-12] MEDS: SENOKOT-S 1 TABLET PO (07:23)
[2024-08-12] MEDS: VIBRAMYCIN 100 MG PO (07:24)
[2024-08-12] MEDS: MIRALAX 17 GRAMS PO (07:24)
[2024-08-12] MEDS: ZESTRIL 20 MG PO (07:24)
[2024-08-12] MEDS: LYRICA 50 MG PO (07:24)
[2024-08-12 07:25] VITALS: O2SAT 91; O2SAT 95
[2024-08-12] MEDS: DUONEB 3 ML INH ×2 (07:42→10:57)
[2024-08-12 08:00] LABS: Hematocrit 34.2 % (37.0-47.0); Hemoglobin 11.5 g/dL (12.0-16.0); Mean Corp Hgb Conc. 33.6 g/dL (33.0-37.0); Mean Corpuscular Volume 86.1 fL (81.0-99.0); Platelet Count 298 10^3/uL (130-400); Red Blood Cell Count 3.97 10^6/uL (4.20-5.40); Red Cell Dist. Width 13.4 % (11.5-14.5)
[2024-08-12 08:19] LABS: Blood Urea Nitrogen 20 mg/dl (7-17); Calcium 9.1 mg/dl (8.4-10.2); Carbon Dioxide 34 mmol/L (22-30); Chloride 97 mmol/L (98-107); Estimated Creatinine Clearance 37 ml/min; Glucose 93 mg/dl (70-99); Magnesium 1.8 mg/dl (1.6-2.3); Phosphorus 3.3 mg/dl (2.5-4.5); Potassium 4.8 mmol/L (3.5-5.1); Sodium 137 mmol/L (135-145); eGFR > 60.00
[2024-08-12 08:30] VITALS: O2SAT 94; O2SAT 96
[2024-08-12] MEDS: ULTRAM 50 MG PO (09:34)
--- NOTE | 2024-08-12 12:01 | W.DCSUMMARY ---
Discharge Summary
Discharge Data
Date of Admission: 08/08/24
Date of Discharge: 08/12/24
-
Pending Results: No
Discharge Plan
-
Patient Disposition: Alf/SNF
Discharge Diagnosis/Procedures: Post-viral Pneumonia
Acute Hypoxic Respiratory Failure resolved
Hypertension
Hypokalemia resolved
Constipation resolved
Condition: Fair
Diet: Regular
Activity: As tolerated
Driving Restrictions: As prior to admission
Bathing Restrictions: None
Blood Work: Please obtain CBC, BMP, and Thyroid Function Test with primary care provider in 1 week of discharge.
Other Services: PT and OT
Activity Restrictions/Additional Instructions:
Please follow up with primary care provider in 1 week of discharge.
Hydrochlorothiazide has been discontinued in favor of Amlodipine for blood pressure control. Hydrochlorothiazide discontinued due to hypokalemia and hyponatremia- since resolved.
Tramadol has been prescribed twice a day as needed for pain.
Please take medications as prescribed/recommended and follow up with primary care provider and/or other healthcare provider involved in your care for refills and/or further adjustment to your medication regimen as necessary.
Referrals:
Chris Malagon MD [Family Provider] - in one week
Prescriptions:
New
tramadol 50 mg Tablet
50 mg PO BIDPRN PRN (Reason: moderate severe pain) Qty: 10 0RF
lisinopril 20 mg Tablet
20 mg PO DAILY Qty: 30 0RF
amlodipine 5 mg Tablet
5 mg PO DAILY Qty: 30 0RF
Continued
atorvastatin 10 MG tablet
10 mg PO DAILY
gabapentin 100 mg capsule
100 mg PO BID Qty: 30 0RF
Discontinued
lisinopril-hydrochlorothiazide 1 EACH tablet
2 ea PO Daily
tramadol 50 MG tablet
1 tab PO DAILY
prednisone 20 mg tablet
40 mg PO DAILY Qty: 10 0RF
lorazepam [Ativan] 0.5 mg tablet
0.5 mg PO DAILY PRN (Reason: anxiety) Qty: 10 0RF
Discharge Orders:
Discharge Patient (As Directed); Ordered 08/12/24
Ordered By: Netta Leblanc
Discharge Date and Time
Print Language: IRAQI
--- NOTE | 2024-08-12 13:27 | CM ---
on site manager reviewed patient's chart and met with patient and patient's spouse and daughter at bedside, patient has been cleared for discharge today and plan is to go to [facility] for skilled placement Auth received from insurance 7 days
skilled 08/12 to 08/18, [phone]. on site manager spoke with Sudha in admissions at [facility] and they have accepted patient today and are requesting that patient arrive at 5pm, per patient her friend will transport her to [facility].
[facility]
Report [phone] ask for Martha
[2024-08-12] MEDS: DUONEB INH (15:15)
[2024-08-12 15:23] VITALS: BP 119/56
== END 2024-08-12 16:14 | DRG 193 ==
LOC: 4 WEST ACU 22:33
PROVIDERS: Emergency Medicine; ADMITTING PHYSICIAN Internal Medicine; ATTENDING PHYSICIAN Internal Medicine; EMERGENCY PHYSICIAN Emergency Medicine; FAMILY PHYSICIAN Family Medicine
DX: J12.9 Viral pneumonia, unspecified (principal); J96.01 Acute respiratory failure with hypoxia; Z11.52 Encounter for screening for COVID-19; N18.30 Chronic kidney disease, stage 3 unspecified; I12.9 Hypertensive chronic kidney disease with stage 1 through stage 4 chronic kidney disease, or unspecified chronic kidney disease; E87.6 Hypokalemia; K59.00 Constipation, unspecified; F41.9 Anxiety disorder, unspecified; F32.A Depression, unspecified; K58.9 Irritable bowel syndrome, unspecified; E03.9 Hypothyroidism, unspecified; Z86.0100 Personal history of colon polyps, unspecified; E78.00 Pure hypercholesterolemia, unspecified; G89.29 Other chronic pain
CPT/HCPCS: 71046; 71275; 80048; 80053; 83735; 84100; 85025; 85027; 87070; 87205; 87811; 93005; 94640; 94761; 96374; 97116; 97163; 97166; 97530; 99285; Q9967